=== PATIENT | female | born 1950 | race Two or more races ===

== ENCOUNTER 2022-03-30 14:51 | Inpatient (IN) | payer MEDICARE, MEDICAID ==
[~2022-03-30] VITALS: Ht 149.9 cm; Wt 50.8 kg
[2022-03-30 15:21] LABS: Basophils # (auto) 0.1 10 ^3/uL (0-0.2); Basophils % (auto) 0.6 % (0.0-2.0); Eosinophils # (auto) 0 10 ^3/uL (0-0.8); Hematocrit 44.6 % (36.0-46.0); Hemoglobin 15.3 g/dL (12.2-16.2); Lymphocytes # (auto) 1.5 10 ^3/uL (0.4-5.4); Mean Corpuscular Hemoglobin 33.6 pg (28.0-32.0); Mean Corpuscular Hgb Conc. 34.3 g/dL (32.0-36.0); Mean Corpuscular Volume 97.8 fL (80.0-100.0); Monocytes # (auto) 0.5 10 ^3/uL (0-1.3); Monocytes % (auto) 4.2 % (0.0-12.0); Neutrophils % (auto) 83.2 % (37.0-80.0); Nucleated Red Blood Cells % 0.3 %; Red Blood Cells 4.56 10^6/uL (4.0-5.20); Red Cell Distribution Width 14.1 % (11.8-14.3); White Blood Cell 12.1 10^3/uL (4.4-10.8)
[2022-03-30 15:41] LABS: Albumin 3.9 g/dL (3.4-5.0); BUN/Creatinine Ratio 16.7; Calcium 10.1 mg/dL (8.5-10.1); Potassium 3.6 mmol/L (3.5-5.1)
[2022-03-30 15:43] LABS: Bilirubin, Total 0.9 mg/dL (0.2-1.0); Total Protein 7.6 g/dL (6.4-8.2)
[2022-03-30] MEDS ORDERED: NITROGLYCERIN 0.4 MG SL TAB SL ONE (16:00)
[2022-03-30] MEDS ORDERED: THIAMINE 100mg/ml INJ (200mg/2ml VIAL) IV ONE (16:00)
[2022-03-30] MEDS ORDERED: cefTRIAXone 1GM/50ML D5W 50 ML IV ONE (16:00)
[2022-03-30] MEDS ORDERED: ASPirin 81 mg TAB PO ONE (16:00)
[2022-03-30] MEDS ORDERED: IRBE300T43 PO (19:23)
[2022-03-30] MEDS ORDERED: AMLO-489 PO (19:23)
[2022-03-30 19:40] LABS: Alcohol, Urine < 3.0 mg/dL (0-10); Amphetamine Screen, Urine NEGATIVE (NEGATIVE); Barbiturate Scree,Urine NEGATIVE (NEGATIVE); Benzodiazephine Screen, Urine NEGATIVE (NEGATIVE); Cannabinoid Screen, Urine POSITIVE (NEGATIVE); Cocaine Screen, Urine NEGATIVE (NEGATIVE); Opiate Scree,Urine NEGATIVE (NEGATIVE); Phencyclidine Screen, Urine NEGATIVE (NEGATIVE)
[2022-03-30 19:48] LABS: Urine Blood 1+ /uL (Negative); Urine Specific Gravity 1.024 (1.001-1.035)
[2022-03-30 20:06] LABS: Cholesterol 201 mg/dL (< 200)
[2022-03-30 20:08] LABS: HDL Cholesterol 88 mg/dL (40-59); LDL Cholesterol 104 mg/dL (< 100); Triglycerides 97 mg/dL (< 150)
[2022-03-30] MEDS: ASCORBIC ACID 500 MG TAB PO SCH (20:47)
[2022-03-30] MEDS ORDERED: ENOXAPARIN SOD 40 MG/0.4 ML SYRINGE SC SCH (21:00)
[2022-03-30] MEDS: SODIUM CHLORIDE 0.9% 1,000 ML IV SCH (21:01)
[2022-03-31] MEDS: ACETAMINOPHEN 325 MG TAB PO PRN ×2 (06:19→12:28)
[2022-03-31 06:22] LABS: Basophils # (auto) 0.1 10 ^3/uL (0-0.2); Eosinophils # (auto) 0.1 10 ^3/uL (0-0.8); Eosinophils % (auto) 0.6 % (0.0-7.0); Hematocrit 45.2 % (36.0-46.0); Lymphocytes # (auto) 1.8 10 ^3/uL (0.4-5.4); Lymphocytes % (auto) 18.4 % (10.0-50.0); Mean Corpuscular Hgb Conc. 33.2 g/dL (32.0-36.0); Mean Corpuscular Volume 99.2 fL (80.0-100.0); Monocytes # (auto) 0.6 10 ^3/uL (0-1.3); Monocytes % (auto) 6.1 % (0.0-12.0); Neutrophils # (auto) 7.2 10 ^3/uL (1.6-8.6); Neutrophils % (auto) 73.9 % (37.0-80.0); Nucleated Red Blood Cells % 0.2 %; Red Blood Cells 4.55 10^6/uL (4.0-5.20); Red Cell Distribution Width 14.2 % (11.8-14.3); White Blood Cell 9.7 10^3/uL (4.4-10.8)
[2022-03-31 06:31] LABS: Albumin 3.7 g/dL (3.4-5.0); Calcium 9.1 mg/dL (8.5-10.1); Potassium 3.4 mmol/L (3.5-5.1)
[2022-03-31 06:36] LABS: Total Protein 7.1 g/dL (6.4-8.2)
[2022-03-31] MEDS: cefTRIAXone 1GM/50ML D5W 50 ML IV SCH (08:55)
[2022-03-31] MEDS: THIAMINE 100mg/ml INJ (200mg/2ml VIAL) IV SCH (11:17)
[2022-03-31] MEDS: ENOXAPARIN SOD 30 MG/0.3 ML SYRINGE SC SCH (11:18)
[2022-03-31] MEDS: MULTIPLE VITAMIN TAB PO SCH (11:18)
[2022-03-31] MEDS: ASPirin 81 mg TAB PO SCH (11:18)
[2022-03-31] MEDS: ASCORBIC ACID 500 MG TAB PO SCH ×2 (11:18→22:44)
[2022-03-31] MEDS: ZINC SULFATE 220mg CAP or TAB PO SCH (11:18)
[2022-03-31] MEDS: amLODIPine BESYLATE 5 MG TAB PO SCH (11:19)
[2022-03-31] MEDS ORDERED: ATORVASTATIN 20 MG TAB PO ONE (11:45)
[2022-03-31] MEDS: SODIUM CHLORIDE 0.9% 1,000 ML IV SCH (12:06)
[2022-03-31] MEDS ORDERED: SODIUM CHLORIDE 0.9% 1,000 ML IV ONE (13:00)
[2022-03-31] MEDS: MORPHINE SULFATE INJ 2 MG/ml SYRG IV PRN ×2 (20:53→23:19)
[2022-03-31 22:00] VITALS: BP 136/107
[2022-03-31] MEDS: ATORVASTATIN 20 MG TAB PO SCH (22:44)
[2022-03-31] MEDS: NITROGLYCERIN 0.4 MG SL TAB SL PRN ×3 (22:49→23:03)
[2022-04-01 05:00] VITALS: BP 122/79
[2022-04-01 06:12] LABS: Albumin 2.8 g/dL (3.4-5.0); BUN/Creatinine Ratio 21.1; Calcium 8.1 mg/dL (8.5-10.1); Potassium 3.3 mmol/L (3.5-5.1)
[2022-04-01 06:16] LABS: Bilirubin, Total 0.8 mg/dL (0.2-1.0); Total Protein 5.9 g/dL (6.4-8.2)
[2022-04-01] MEDS ORDERED: ADENOSINE 38 MG in GIVE UN-DILUTED 0 ML IV ONE (07:30)
[2022-04-01 09:00] VITALS: BP 140/86
[2022-04-01] MEDS: cefTRIAXone 1GM/50ML D5W 50 ML IV SCH (10:05)
[2022-04-01] MEDS: ENOXAPARIN SOD 30 MG/0.3 ML SYRINGE SC SCH (10:06)
[2022-04-01] MEDS: ASPirin 81 mg TAB PO SCH (10:06)
[2022-04-01] MEDS: MULTIPLE VITAMIN TAB PO SCH (10:07)
[2022-04-01] MEDS: ZINC SULFATE 220mg CAP or TAB PO SCH (10:08)
[2022-04-01] MEDS: ASCORBIC ACID 500 MG TAB PO SCH ×2 (10:08→22:22)
[2022-04-01] MEDS: amLODIPine BESYLATE 5 MG TAB PO SCH (10:10)
[2022-04-01] MEDS: THIAMINE 100mg/ml INJ (200mg/2ml VIAL) IV SCH (10:10)
[2022-04-01 13:00] VITALS: BP 144/94
[2022-04-01] MEDS: MORPHINE SULFATE INJ 2 MG/ml SYRG IV PRN ×2 (13:31→22:15)
[2022-04-01 17:01] VITALS: BP 131/88
[2022-04-01 22:00] VITALS: BP 149/94
[2022-04-01] MEDS: ATORVASTATIN 20 MG TAB PO SCH (22:22)
[2022-04-02] MEDS: ACETAMINOPHEN 325 MG TAB PO PRN (03:00)
[2022-04-02] MEDS: MORPHINE SULFATE INJ 2 MG/ml SYRG IV PRN ×4 (03:53→21:56)
[2022-04-02 05:00] VITALS: BP 127/87
[2022-04-02 09:00] VITALS: BP 140/94
[2022-04-02] MEDS: cefTRIAXone 1GM/50ML D5W 50 ML IV SCH (09:16)
[2022-04-02] MEDS: THIAMINE 100mg/ml INJ (200mg/2ml VIAL) IV SCH (09:18)
[2022-04-02] MEDS: ZINC SULFATE 220mg CAP or TAB PO SCH (09:21)
[2022-04-02] MEDS: ASPirin 81 mg TAB PO SCH (09:22)
[2022-04-02] MEDS: ASCORBIC ACID 500 MG TAB PO SCH ×2 (09:22→21:55)
[2022-04-02] MEDS: MULTIPLE VITAMIN TAB PO SCH (09:22)
[2022-04-02] MEDS: amLODIPine BESYLATE 5 MG TAB PO SCH (09:22)
[2022-04-02] MEDS: ENOXAPARIN SOD 30 MG/0.3 ML SYRINGE SC SCH (09:23)
[2022-04-02] MEDS ORDERED: GADOTERATE MEG 7.5 MMOL/15ml INJ (0.5MMOL/ml) IV ONE (11:27)
[2022-04-02 13:00] VITALS: BP 131/102
[2022-04-02 17:00] VITALS: BP 131/92
[2022-04-02 21:30] VITALS: BP 144/87
[2022-04-02] MEDS: ATORVASTATIN 20 MG TAB PO SCH (21:55)
[2022-04-03] MEDS: ACETAMINOPHEN 325 MG TAB PO PRN (04:53)
[2022-04-03 05:00] VITALS: BP 126/89
[2022-04-03] MEDS: MORPHINE SULFATE INJ 2 MG/ml SYRG IV PRN ×5 (08:28→22:28)
[2022-04-03 09:02] VITALS: BP 134/92
[2022-04-03] MEDS: ASCORBIC ACID 500 MG TAB PO SCH ×2 (09:26→20:55)
[2022-04-03] MEDS: MULTIPLE VITAMIN TAB PO SCH (09:26)
[2022-04-03] MEDS: ZINC SULFATE 220mg CAP or TAB PO SCH (09:27)
[2022-04-03] MEDS: THIAMINE 100mg/ml INJ (200mg/2ml VIAL) IV SCH (09:27)
[2022-04-03] MEDS: amLODIPine BESYLATE 5 MG TAB PO SCH (09:27)
[2022-04-03] MEDS: ENOXAPARIN SOD 30 MG/0.3 ML SYRINGE SC SCH (09:28)
[2022-04-03] MEDS: cefTRIAXone 1GM/50ML D5W 50 ML IV SCH (09:28)
[2022-04-03] MEDS ORDERED: ONDANSETRON ODT 4 MG TAB PO PRN (12:15)
[2022-04-03 13:22] VITALS: BP 141/96
[2022-04-03 17:00] VITALS: BP 117/78
[2022-04-03] MEDS ORDERED: KETOROLAC TROMETH 30 MG/ML 1ML VIAL IV PRN (20:45)
[2022-04-03] MEDS: ATORVASTATIN 20 MG TAB PO SCH (20:55)
[2022-04-03 22:00] VITALS: BP 139/98
[2022-04-04 05:00] VITALS: BP 134/93
[2022-04-04] MEDS: MORPHINE SULFATE INJ 2 MG/ml SYRG IV PRN ×2 (05:29→09:53)
[2022-04-04] MEDS: ZINC SULFATE 220mg CAP or TAB PO SCH (08:37)
[2022-04-04] MEDS: amLODIPine BESYLATE 5 MG TAB PO SCH (08:38)
[2022-04-04] MEDS: THIAMINE 100mg/ml INJ (200mg/2ml VIAL) IV SCH (08:38)
[2022-04-04] MEDS: cefTRIAXone 1GM/50ML D5W 50 ML IV SCH (08:39)
[2022-04-04] MEDS: ENOXAPARIN SOD 30 MG/0.3 ML SYRINGE SC SCH (08:39)
[2022-04-04] MEDS: ASCORBIC ACID 500 MG TAB PO SCH (08:39)
[2022-04-04] MEDS: MULTIPLE VITAMIN TAB PO SCH (08:43)
[2022-04-04 09:00] VITALS: BP 145/107
[2022-04-04] MEDS ORDERED: FOLI1TAB6 PO (09:15)
[2022-04-04] MEDS ORDERED: PANT40T PO (09:15)
[2022-04-04] MEDS ORDERED: THIA100T5 PO (09:15)
[2022-04-04 09:41] VITALS: BP 128/63
[2022-04-04 10:51] VITALS: BP 134/81
== END 2022-04-04 11:10 | disposition home or self-care (01) | DRG 282 ==
LOC: ER 14:51 → TELE 19:12 → TELE-CENTR 03-31 21:48
PROVIDERS: ADMIT Nurse Practitioner Family; ATTEND Family Medicine
DX: K85.20 Alcohol induced acute pancreatitis without necrosis or infection (principal); D72.829 Elevated white blood cell count, unspecified; F10.10 Alcohol abuse, uncomplicated; I10 Essential (primary) hypertension; Z20.822 Contact with and (suspected) exposure to COVID-19; E78.00 Pure hypercholesterolemia, unspecified; R74.01 Elevation of levels of liver transaminase levels; E78.5 Hyperlipidemia, unspecified; R07.89 Other chest pain; F12.10 Cannabis abuse, uncomplicated; Z79.899 Other long term (current) drug therapy; Z90.710 Acquired absence of both cervix and uterus; Z80.6 Family history of leukemia; Z71.41 Alcohol abuse counseling and surveillance of alcoholic; Z90.49 Acquired absence of other specified parts of digestive tract
CPT/HCPCS: 36415; 71045; 74176; 74181; 74183; 78452; 80053; 80061; 80307; 80320; 81003; 83605; 83690; 84443; 84484; 85025; 86301; 87040; 87426; 93005; 93017; 93306; G0378; J0153; J0696; J1885; Q0162

== ENCOUNTER 2022-10-01 11:35 | Day surgery (SDC) | payer MEDICARE, MEDICAID ==
[2022-09-24 14:10] LABS: Basophils # (auto) 0.1 10 ^3/uL (0-0.2); Eosinophils # (auto) 0.1 10 ^3/uL (0-0.8); Hemoglobin 14.4 g/dL (12.2-16.2); Mean Corpuscular Hemoglobin 34.1 pg (28.0-32.0); Monocytes # (auto) 0.6 10 ^3/uL (0-1.3); Monocytes % (auto) 5.6 % (0.0-12.0); Nucleated Red Blood Cells % 0.1 %; Red Blood Cells 4.22 10^6/uL (4.0-5.20); White Blood Cell 10.2 10^3/uL (4.4-10.8)
[2022-09-24 14:12] LABS: Basophils % (auto) 0.7 % (0.0-2.0); Mean Corpuscular Hgb Conc. 33.4 g/dL (32.0-36.0); Neutrophils # (auto) 7.4 10 ^3/uL (1.6-8.6); Neutrophils % (auto) 72.7 % (37.0-80.0); Red Cell Distribution Width 12.6 % (11.8-14.3)
[2022-09-24 14:44] LABS: INR 0.91 (0.9-1.15); Partial Thromboplastin Time 26.7 sec (24.6-33.4)
[2022-09-24 14:45] LABS: Albumin 3.2 g/dL (3.4-5.0); Calcium 8.3 mg/dL (8.5-10.1); Potassium 4.1 mmol/L (3.5-5.1)
[2022-09-24 14:49] LABS: Bilirubin, Total 0.3 mg/dL (0.2-1.0); Total Protein 6.9 g/dL (6.4-8.2)
[~2022-10-01] VITALS: Ht 149.9 cm; Wt 44.0 kg
[~2022-10-01 11:35] MED LIST: AMLO1TAB22 PO; FOLI-119 PO; IRBE300T43 PO; PANT40T PO; THIA100T5 PO
[2022-10-01] MEDS: fentaNYL CITRATE 100 MCG/2 ML VL ONE ×4 (14:29→14:39)
[2022-10-01] MEDS: MIDAZOLAM HCL 2MG/2ML 2ml VIAL (1mg/ml) ONE ×6 (14:29→14:59)
[2022-10-01 15:43] VITALS: BP 134/89
[2022-10-01] MEDS ORDERED: diphenhdrAMINE HCL 50 MG/1 ML VL ONE (16:44)
== END 2022-10-01 15:45 | disposition home or self-care (01) ==
LOC: GI 11:35
PROVIDERS: ATTEND Internal Medicine Gastroenterology
DX: Z12.11 Encounter for screening for malignant neoplasm of colon (principal); D12.0 Benign neoplasm of cecum; D12.2 Benign neoplasm of ascending colon; D12.3 Benign neoplasm of transverse colon; D12.4 Benign neoplasm of descending colon; I10 Essential (primary) hypertension; Z90.710 Acquired absence of both cervix and uterus; Z80.6 Family history of leukemia; Z83.79 Family history of other diseases of the digestive system; Z79.899 Other long term (current) drug therapy; Z98.890 Other specified postprocedural states
CPT/HCPCS: 36415; 45385; 80053; 85025; 85610; 85730; 88305; J1200; J2250; J3010; J7030; 99152; 99153

== ENCOUNTER 2023-11-15 12:26 | Inpatient (IN) | payer MEDICARE, MEDICAID ==
[~2023-11-15] VITALS: Ht 149.9 cm; Wt 42.9 kg
[2023-11-15] MEDS: SODIUM CHLORIDE 0.9% 500 ML IVB ONE (13:22)
[2023-11-15 13:28] VITALS: PULSE 81; RESP 14; O2SAT 99
[2023-11-15 13:31] LABS: Basophils # (auto) 0.1 10 ^3/uL (0-0.2); Basophils % (auto) 0.7 % (0.0-2.0); Eosinophils # (auto) 0 10 ^3/uL (0-0.8); Lymphocytes # (auto) 1.5 10 ^3/uL (0.4-5.4); Monocytes # (auto) 0.4 10 ^3/uL (0-1.3); Neutrophils # (auto) 7.6 10 ^3/uL (1.6-8.6)
[2023-11-15 13:32] LABS: Eosinophils % (auto) 0.4 % (0.0-7.0); Hematocrit 39.1 % (36.0-46.0); Hemoglobin 13.4 g/dL (12.2-16.2); Lymphocytes % (auto) 15.5 % (10.0-50.0); Mean Corpuscular Hemoglobin 36.7 pg (28.0-32.0); Mean Corpuscular Hgb Conc. 34.3 g/dL (32.0-36.0); Monocytes % (auto) 4.1 % (0.0-12.0); Neutrophils % (auto) 79.3 % (37.0-80.0); Red Blood Cells 3.65 10^6/uL (4.0-5.20); Red Cell Distribution Width 13.7 % (11.8-14.3); White Blood Cell 9.6 10^3/uL (4.4-10.8)
[2023-11-15 13:57] LABS: Alanine Aminotransferase 12 U/L (7-40); Albumin 3.9 g/dL (3.2-4.8); Alkaline Phosphatase 112 U/L (46-116); Anion Gap 7 (5-15); Aspartate Aminotransferase 13 U/L (13-40); BUN/Creatinine Ratio 16.8 (10.0-20.0); Bilirubin, Total 0.6 mg/dL (0.2-1.0); Blood Urea Nitrogen 23 mg/dL (9-23); Carbon Dioxide 15 mmol/L (20-30); Chloride 112 mmol/L (98-107); Glucose 127 mg/dL (74-106); Lipase 40 U/L (12-53); Potassium 3.8 mmol/L (3.5-5.1); Sodium 134 mmol/L (136-145); Total Protein 6.7 g/dL (5.7-8.2)
[2023-11-15 15:45] LABS: Urine Amorphous Crystal FEW /hpf (None Seen); Urine Bacteria MANY /hpf (None Seen); Urine Blood Negative /uL (Negative); Urine Clarity Turbid (Clear); Urine Color Colorless (Yellow); Urine Hyaline Cast FEW /lpf (0 - 2); Urine Mucus FEW (None Seen); Urine Protein, UAD TRACE (Negative); Urine Specific Gravity 1.013 (1.001-1.035); Urine Urobilinogen Normal (Negative); Urine WBC 50 /hpf (0 - 5); Urine pH 5.5 (5.0-9.0)
[2023-11-15] MEDS ORDERED: HYDROcodone-ACET 5/325MG TAB PO PRN (18:15)
[2023-11-15] MEDS ORDERED: ONDANSETRON HCL 4 MG/2 ML VIAL IV PRN (18:15)
[2023-11-15] MEDS ORDERED: DOCUSATE SOD 100 MG CAP PO PRN (18:15)
[2023-11-15] MEDS ORDERED: ACETAMINOPHEN 325 MG TAB PO PRN (18:15)
[2023-11-15] MEDS ORDERED: SODIUM CHLORIDE 0.9% 1,000 ML IV SCH (18:15)
[2023-11-15] MEDS ORDERED: NITROGLYCERIN 0.4 MG SL TAB SL PRN (18:30)
[2023-11-15] MEDS ORDERED: MORPHINE SULFATE INJ 2 MG/ml SYRG IV PRN (18:30)
[2023-11-15] MEDS: cefTRIAXone 1GM/50ML D5W 50 ML IV ONE (19:02)
[2023-11-15 21:16] VITALS: BP 96/67; PULSE 88; RESP 14; TEMP 97.6; O2SAT 98
[2023-11-16] VITALS (8 sets, daily range): BP systolic 83–105; BP diastolic 57–71; PULSE 70–92; RESP 16–18; TEMP 97.5–98.7; O2SAT 95–99
[2023-11-16] MEDS ORDERED: PNEUMOCOCCAL VACC POLYS 25 MCG/0.5 ML VIAL IM ONE (02:30)
[2023-11-16 05:54] LABS: Basophils # (auto) 0.1 10 ^3/uL (0-0.2); Basophils % (auto) 0.6 % (0.0-2.0); Eosinophils # (auto) 0.1 10 ^3/uL (0-0.8); Hematocrit 33.5 % (36.0-46.0); Hemoglobin 11.6 g/dL (12.2-16.2); Lymphocytes # (auto) 1.7 10 ^3/uL (0.4-5.4); Lymphocytes % (auto) 20.6 % (10.0-50.0); Mean Corpuscular Hemoglobin 36.9 pg (28.0-32.0); Mean Corpuscular Hgb Conc. 34.6 g/dL (32.0-36.0); Mean Corpuscular Volume 106.9 fL (80.0-100.0); Monocytes # (auto) 0.4 10 ^3/uL (0-1.3); Monocytes % (auto) 4.9 % (0.0-12.0); Neutrophils % (auto) 72.9 % (37.0-80.0); Nucleated Red Blood Cells % 0.1 %; Red Blood Cells 3.13 10^6/uL (4.0-5.20); Red Cell Distribution Width 13.3 % (11.8-14.3); White Blood Cell 8.3 10^3/uL (4.4-10.8)
[2023-11-16 06:19] LABS: Alkaline Phosphatase 86 U/L (46-116); Anion Gap 10 (5-15); Aspartate Aminotransferase 8 U/L (13-40); BUN/Creatinine Ratio 22.8 (10.0-20.0); Blood Urea Nitrogen 18 mg/dL (9-23); Calcium 7.4 mg/dL (8.7-10.4); Carbon Dioxide 12 mmol/L (20-30); Chloride 116 mmol/L (98-107); Glucose 74 mg/dL (74-106); Potassium 2.9 mmol/L (3.5-5.1); Sodium 138 mmol/L (136-145)
[2023-11-16 06:20] LABS: Bilirubin, Total 0.4 mg/dL (0.2-1.0); Total Protein 4.8 g/dL (5.7-8.2)
[2023-11-16 06:30] LABS: Alanine Aminotransferase < 9 U/L (7-40)
[2023-11-16] MEDS: MECLIZINE HCL 25 MG TAB PO PRN (07:03)
[2023-11-16] MEDS: POTASSIUM CHLORIDE 40 MEQ in SOD CHL 0.45% 1,000 ML IV SCH (08:30)
[2023-11-16] MEDS: cefTRIAXone 1GM/50ML D5W 50 ML IV SCH (09:33)
[2023-11-16] MEDS: ENOXAPARIN SOD 30 MG/0.3 ML SYRINGE SC SCH (09:33)
[2023-11-16] MEDS: PANTOPRAZOLE 40 MG/10 ML VIAL INJ IV SCH (09:33)
[2023-11-16] MEDS: POTASSIUM CHL 20MEQ/100ML 100 ML IV ONE (11:45)
[2023-11-16] MEDS: SODIUM CHLORIDE 0.9% 500 ML IV ONE (12:06)
[2023-11-16 12:23] LABS: Base Excess -11.8 mmol/L (-2.0-2.0)
[2023-11-16] MEDS: SODIUM CHLORIDE 0.9% 1,000 ML IV SCH (14:45)
[2023-11-16] MEDS ORDERED: IOHEXOL 350 MG/ML 100ML IJ ONE (15:00)
[2023-11-16] MEDS: MAGNESIUM SULFATE 1GM/100ML 100 ML IV SCH (18:00)
[2023-11-16 18:57] LABS: Folate (Folic Acid) 5.83 ng/mL (>5.38)
[2023-11-16] MEDS: CYANOCOBALAMIN (B-12) 1000 MCG/1 ML VIAL IM ONE (23:09)
[2023-11-16] MEDS: POTASSIUM CHL 20 Meq TABLET PO ONE (23:10)
[2023-11-17] VITALS (11 sets, daily range): BP systolic 82–111; BP diastolic 53–77; PULSE 70–78; RESP 14–20; TEMP 97.5–98.3; O2SAT 93–100
[2023-11-17] MEDS: SODIUM CHLORIDE 0.9% 500 ML IV ONE (04:56)
[2023-11-17] MEDS ORDERED: LOPERAMIDE 1 mg/7.5ml ORAL soln PO PRN (05:45)
[2023-11-17 06:30] LABS: Basophils # (auto) 0.1 10 ^3/uL (0-0.2); Eosinophils # (auto) 0.1 10 ^3/uL (0-0.8); Hemoglobin 11.6 g/dL (12.2-16.2); Lymphocytes # (auto) 1.8 10 ^3/uL (0.4-5.4); Lymphocytes % (auto) 22.5 % (10.0-50.0); Monocytes # (auto) 0.4 10 ^3/uL (0-1.3); Neutrophils # (auto) 5.5 10 ^3/uL (1.6-8.6); White Blood Cell 7.9 10^3/uL (4.4-10.8)
[2023-11-17 06:33] LABS: Basophils % (auto) 1.2 % (0.0-2.0); Eosinophils % (auto) 1.2 % (0.0-7.0); Hematocrit 33.8 % (36.0-46.0); Mean Corpuscular Hemoglobin 37.4 pg (28.0-32.0); Mean Corpuscular Hgb Conc. 34.3 g/dL (32.0-36.0); Mean Corpuscular Volume 109.1 fL (80.0-100.0); Monocytes % (auto) 5.3 % (0.0-12.0); Neutrophils % (auto) 69.8 % (37.0-80.0); Red Cell Distribution Width 13.8 % (11.8-14.3)
[2023-11-17 06:41] LABS: Alanine Aminotransferase 10 U/L (7-40); Albumin 3.2 g/dL (3.2-4.8); Alkaline Phosphatase 88 U/L (46-116); Anion Gap 4 (5-15); Aspartate Aminotransferase 9 U/L (13-40); BUN/Creatinine Ratio 12.6 (10.0-20.0); Blood Urea Nitrogen 11 mg/dL (9-23); Calcium 8.3 mg/dL (8.7-10.4); Carbon Dioxide 14 mmol/L (20-30); Chloride 118 mmol/L (98-107); Glucose 69 mg/dL (74-106); Magnesium 2.3 mg/dL (1.6-2.6); Potassium 4.6 mmol/L (3.5-5.1); Sodium 136 mmol/L (136-145)
[2023-11-17 06:42] LABS: Bilirubin, Total 0.3 mg/dL (0.2-1.0); Total Protein 5.3 g/dL (5.7-8.2)
[2023-11-17] MEDS ORDERED: POTASSIUM CHLORIDE 20 MEQ, LIDOCAINE 1% (LOCAL ANESTH.) 2 ML in SODIUM CHL 0.9% 100 ML IV ONE (09:00)
[2023-11-17] MEDS: CYANOCOBALAMIN 500 MCG TAB PO SCH (09:53)
[2023-11-18] VITALS (7 sets, daily range): BP systolic 92–113; BP diastolic 66–74; PULSE 72–84; RESP 17–18; TEMP 97.6–98.4; O2SAT 93–98
[2023-11-18 06:49] LABS: Alkaline Phosphatase 84 U/L (46-116); Anion Gap 7 (5-15); Aspartate Aminotransferase < 8 U/L (13-40); BUN/Creatinine Ratio 9.3 (10.0-20.0); Bilirubin, Total 0.4 mg/dL (0.2-1.0); Blood Urea Nitrogen 7 mg/dL (9-23); Calcium 8.4 mg/dL (8.7-10.4); Carbon Dioxide 15 mmol/L (20-30); Chloride 118 mmol/L (98-107); Glucose 75 mg/dL (74-106); Potassium 4.4 mmol/L (3.5-5.1); Sodium 140 mmol/L (136-145); Total Protein 4.8 g/dL (5.7-8.2)
[2023-11-18 06:50] LABS: Alanine Aminotransferase < 9 U/L (7-40)
[2023-11-18 06:51] LABS: Eosinophils # (auto) 0.1 10 ^3/uL (0-0.8); Hemoglobin 11.1 g/dL (12.2-16.2); Lymphocytes # (auto) 1.9 10 ^3/uL (0.4-5.4); Mean Corpuscular Hgb Conc. 34.5 g/dL (32.0-36.0); Monocytes # (auto) 0.4 10 ^3/uL (0-1.3); Nucleated Red Blood Cells % 0.1 %
[2023-11-18 06:55] LABS: Basophils # (auto) 0.1 10 ^3/uL (0-0.2); Basophils % (auto) 1.3 % (0.0-2.0); Eosinophils % (auto) 1.6 % (0.0-7.0); Hematocrit 32.3 % (36.0-46.0); Mean Corpuscular Volume 107.4 fL (80.0-100.0); Monocytes % (auto) 5.3 % (0.0-12.0); Neutrophils # (auto) 5.6 10 ^3/uL (1.6-8.6); Neutrophils % (auto) 68.8 % (37.0-80.0); Red Blood Cells 3.01 10^6/uL (4.0-5.20); Red Cell Distribution Width 13.8 % (11.8-14.3); White Blood Cell 8.1 10^3/uL (4.4-10.8)
[2023-11-18] MEDS ORDERED: CYAN500T3 PO (18:26)
[2023-11-18] MEDS ORDERED: NITR-52 PO (18:26)
== END 2023-11-18 20:55 | disposition home or self-care (01) | DRG 720 ==
LOC: ER 12:26 → TELE 18:26 → TELE-WESTW 22:20
PROVIDERS: ADMIT Internal Medicine Pulmonary Disease; ATTEND Internal Medicine Pulmonary Disease
DX: A41.9 Sepsis, unspecified organism (principal); E87.20 Acidosis, unspecified; E83.51 Hypocalcemia; K86.89 Other specified diseases of pancreas; G90.9 Disorder of the autonomic nervous system, unspecified; K52.9 Noninfective gastroenteritis and colitis, unspecified; K57.30 Diverticulosis of large intestine without perforation or abscess without bleeding; N39.0 Urinary tract infection, site not specified; E87.6 Hypokalemia; D64.9 Anemia, unspecified; I10 Essential (primary) hypertension; Z90.710 Acquired absence of both cervix and uterus; Z90.49 Acquired absence of other specified parts of digestive tract
CPT/HCPCS: 36415; 36600; 70450; 71260; 74176; 74177; 80053; 81001; 82607; 82746; 82805; 82962; 83605; 83690; 83735; 84132; 85025; 87040; 87086; 87493; 93005; 96361; 96365; G0378; J2470; J3480

== ENCOUNTER 2024-01-04 17:26 | Emergency (ER) | payer MEDICARE, MEDICAID ==
[~2024-01-04] VITALS: Ht 149.9 cm; Wt 42.5 kg
[~2024-01-04 17:26] MED LIST changes: +CYAN500T3 PO; -FOLI-119 PO; +NITR-52 PO; -PANT40T PO; -THIA100T5 PO
[2024-01-04 18:20] VITALS: BP 118/76; PULSE 89; RESP 20; TEMP 98; O2SAT 98
[2024-01-04] MEDS ORDERED: NAP500T PO (19:58)
== END 2024-01-04 20:19 | disposition home or self-care (01) ==
LOC: ER 17:26
DX: S20.212A Contusion of left front wall of thorax, initial encounter (principal); I10 Essential (primary) hypertension; F12.10 Cannabis abuse, uncomplicated; Z90.49 Acquired absence of other specified parts of digestive tract; Z90.710 Acquired absence of both cervix and uterus; W18.09XA Striking against other object with subsequent fall, initial encounter; Y93.89 Activity, other specified; Y92.89 Other specified places as the place of occurrence of the external cause; Y99.8 Other external cause status
CPT/HCPCS: 71101

== ENCOUNTER 2024-06-23 15:09 | Emergency (ER) | payer MEDICARE, MEDICAID ==
[~2024-06-23] VITALS: Ht 149.9 cm; Wt 96.0 kg
[~2024-06-23 15:09] MED LIST changes: +NAP500T PO
[2024-06-23 15:23] VITALS: BP 134/84; RESP 17; TEMP 98; O2SAT 100
--- NOTE | 2024-06-23 15:45 | ED.PDOC ---
Back pain HPI HPI Comments HPI: Poor Historian. 73-year-old female presents to emergency department for evaluation of generalized ribcage pain bilaterally and on the sides of her ribcage and in her upper back. Onset of symptoms this past Tuesday after a friend of the family gave her a strong hugger. She felt her ribs cracked at that time and she has been having increased pain since then. Her pain is worse with deep inspiration. Past Medical History: Hypertension, Past Surgical History: Bladder sling, cholecystectomy, hysterectomy REVIEW OF SYSTEMS: CONSTITUTIONAL: Denies acute: fever, diaphoresis, chills, generalized weakness. HEAD: Denies acute: headache, photophobia Eyes: Denies acute: Double vision, vision loss, eye pain, eye discharge. EARS: Denies acute: tinnitus, hearing loss, ear discharge, ear pain, THROAT: Denies acute: sore throat, swelling, difficulty swallowing , pain with swallowing, change in voice. NECK: Denies acute: neck pain, neck swelling, stiff neck. HEART: Denies acute : palpitations, LUNGS: Denies acute: SOB, wheezing, cough, hemoptysis ABDOMEN: Denies acute: abdominal pain, Nausea, Vomiting, diarrhea, melena , hematemesis, hematochezia SKIN: Denies acute: rash, redness, lesions, itchiness. EXTREMITIES: Denies acute: calf pain, numbness, tingling, weakness, denies pain in extremity. Denies acute: Low back pain. Neuro: Denies acute: focal neurological deficit, motor or sensory focal neurological deficit, tremors, seizure like activity, confusion, dizziness, change in mental status, loss of bowel or bladder function, cauda equina like symptoms. : Denies acute: dysuria, hematuria, flank pain, increase in urinary frequency. PSYCH: Denies acute: hallucination, suicidal ideation, homicidal ideation. FEMALE: Denies acute: abnormal vaginal bleeding, foul odor, unusual discharge. PHYSICAL EXAM: General: [id number] acute distress, awake and alert. Head: normocephalic, atraumatic. Neck: supple, trachea is midline, no swelling. Throat: Normal phonation. Eyes:, no erythema, no purulent discharge, no proptosis, no icterus. Heart: regular rate, regular rhythm, no significant murmur appreciated. Lungs: no apparent respiratory distress, Able to speak in full sentences. No wheezing, no rhonchi, no crackles. No stridors Clear to auscultation bilaterally. Abdomen: non tender to palpation, non distended, soft, no guarding, no rebound, + bowel sounds. Neuro: Awake, Alert, oriented to name, self, situation, follows commands GCS=15. Speech is normal. Skin: no petechia, no purpura, no cyanosis, non-pale, not jaundice. Lower extremities: --no - Pitting edema no deformity, no focal swelling, no calf TTP. Makes eye contact. moves all four extremities. Face: no apparent facial droop. Generalized tenderness to palpation throughout the ribcage areas bilaterally, no crepitus, no swelling, Ambulating in the ED independently. ED COURSE: Chief Complaint: Chest Pain Time Seen by MD: 15:19 Primary Care Provider: ENDO Reviewed Notes: Nurses Notes, Medications, Allergies Allergies: Coded Allergies: NO KNOWN ALLERGIES (Unverified , 03/30/22) Home Meds Active Scripts Naproxen (NAPROSYN TABLET) 500 Mg Tb, 1 TAB PO BID PRN, #30 TAB 0 Refills Prov:KAROLINE CERDA 01/04/24 Nitrofurantoin (Nitrofurantoin) 100 Mg Cap, 1 CAP PO BID for 5 Days, #10 CAP Prov:RADHA DIEHL RESIDENT 11/18/23 Cyanocobalamin (Gnp Vitamin B12) 500 Mcg Tab, 500 MCG PO DAILY for 30 Days, #30 TAB 2 Refills Prov:RADHA DIEHL RESIDENT 11/18/23 Reported Medications Irbesartan (IRBESARTAN) 300 Mg Tab, 300 TAB PO DAILY 03/30/22 Amlodipine Besylate (Amlodipine Besylate) 5 Mg Tab, 5 TAB PO DAILY 03/30/22 Information Source: Patient Mode of Arrival: Ambulatory Past Medical History PAST MEDICAL HISTORY: HTN Surgical History: Cholecystectomy, Hysterectomy CROCHET BEADER History: No Pertinent CROCHET BEADER History Family History Family History: Unknown Social History Smoker: Non-Smoker Alcohol: Occasionally Drugs: Marijuana Lives In: Home Was a procedure done? Was a procedure done?: No Back Pain Differential Dx Differential Diagnosis: Other (Ddx include but not limitied to gastritis, musculoskeletal pain, radiculopathy, atypical chest pain, dissection, aneurysm, ACS, unstable angina, hiatal hernia, GERD, anxiety, costochondritis, PE, pneumothroax, neoplasm, cardiac ischemia, drug abuse, anemia.) X-Ray, Labs, Meds, VS Vital Signs Date Time Temp Pulse Resp B/P (MAP) Pulse Ox O2 Delivery O2 Flow Rate FiO2 06/23/24 16:42 91 06/23/24 15:23 98.0 106 17 134/84 (101) 100 98.0 06/23/24 15:14 101 Lab Test 06/23/24 16:47 06/23/24 15:39 Range/Units Troponin I High Sensitivity 5 5 </=34 ng/L White Blood Count 7.3 4.4-10.8 10^3/uL Red Blood Count 3.71 L 4.0-5.20 10^6/uL Hemoglobin 13.2 12.2-16.2 g/dL Hematocrit 37.8 36.0-46.0 % Mean Corpuscular Volume 101.7 H 80.0-100.0 fL Mean Corpuscular Hemoglobin 35.4 H 28.0-32.0 pg Mean Corpuscular Hemoglobin Concent 34.8 32.0-36.0 g/dL Red Cell Distribution Width 13.4 11.8-14.3 % Platelet Count 357 140-450 10^3/uL Mean Platelet Volume 6.8 L 6.9-10.8 fL Neutrophils (%) (Auto) 57.0 37.0-80.0 % Lymphocytes (%) (Auto) 30.0 10.0-50.0 % Monocytes (%) (Auto) 9.9 0.0-12.0 % Eosinophils (%) (Auto) 2.2 0.0-7.0 % Basophils (%) (Auto) 0.9 0.0-2.0 % Neutrophils # (Auto) 4.2 1.6-8.6 10 ^3/uL Lymphocytes # (Auto) 2.2 0.4-5.4 10 ^3/uL Monocytes # (Auto) 0.7 0-1.3 10 ^3/uL Eosinophils # (Auto) 0.2 0-0.8 10 ^3/uL Basophils # (Auto) 0.1 0-0.2 10 ^3/uL Nucleated Red Blood Cells 0.1 % Sodium Level 137 136-145 mmol/L Potassium Level 4.5 3.5-5.1 mmol/L Chloride Level 113 H 98-107 mmol/L Carbon Dioxide Level 17 L 20-31 mmol/L Anion Gap 7 5-15 Blood Urea Nitrogen 15 9-23 mg/dL Creatinine 0.94 0.550-1.02 mg/dL Glomerular Filtration Rate Calc 64 >90 mL/min BUN/Creatinine Ratio 16.0 10.0-20.0 Serum Glucose 66 L 74-106 mg/dL Calcium Level 9.1 8.7-10.4 mg/dL Total Bilirubin 0.4 0.2-1.0 mg/dL Aspartate Amino Transferase (AST) 18 13-40 U/L Alanine Aminotransferase (ALT) 17 7-40 U/L Alkaline Phosphatase 124 H 46-116 U/L Creatine Kinase 66 34-145 U/L Total Protein 6.9 5.7-8.2 g/dL Albumin 4.5 3.2-4.8 g/dL [place] [id number] Ph: [phone] DIAGNOSTIC IMAGING Diagnostic Imaging Report : [id number] Signed PATIENT: GARCÍA REIS ACCT: [id number] UNIT: [id number] : 1950 LOC: ER ROOM / BED: / AGE / SEX: 73 / F ADM STATUS: REG ER SERVICE [id number] ORDERING PHYSICIAN: SOLIS INIGUEZ DO PROCEDURE(s): CX2CT - CHEST WITHOUT CONTRAST REASON: rib pain b/l ORDER NUMBER(s): [id number], ACCESSION NUMBER(s): [id number] EXAM: CT CHEST WITHOUT CONTRAST History: rib pain b/l Comparison Study: None available TECHNIQUE: Multidetector CT of the chest was performed. Imaging was performed without IV contrast. Axial, coronal, and sagittal multiplanar reformats were obtained from the axial data set by the technologist. Radiation Dose : CTDI vol 5.6 mGy, DLP 223.58 mGy*cm. Findings: Lungs: The lungs are clear. Pleura: Unremarkable Heart/Great vessels: No cardiomegaly or pericardial effusion. Mediastinum: Unremarkable Soft tissues/Bones: Mild multilevel degenerative changes of the thoracic spine. Nondisplaced fractures of the lateral aspects of right ribs 4-6. Cholecystectomy. Calcifications in the pancreatic head. Left renal cysts. Diverticulosis. The partially visualized upper abdomen is within normal limits. Impression: 1. No acute cardiopulmonary disease. 2. Nondisplaced fractures of the lateral aspects of right ribs 4-6. ATED BY: LEATHA VO DO DICTATED DATE/TIME: 06/23/241754 SIGNED BY: LEATHA VO DO SIGNED DATE/TIME: 06/23/241754 CC: Time of 1ST Reevaluation: 18:20 Reevaluation 1ST: Unchanged Patient Education/Counseling: Other Family Education/Counseling: Other Comments Patient presented with the above HPI.--ribcage pain----workup was initiated. patient was found with the above mentioned diagnosis. the following medications were ordered: please refer to order lists of meds and tests obtained by myself Dr. Iniguez. Patient ED course and VS have been stabilized. Patient eloped. Earlier we attempted to give the patient juice to drink given her hypoglycemia. She was seen walking out not wanted to stay anymore in the ED All the reports of any imaging studies that were ordered by myself were reviewed by myself. Departure 1 Departure Time of Disposition: 18:17 Impression: Primary Impression: Rib fracture Additional Impressions: Eloped from emergency department Hypoglycemia Disposition: 07 LEFT AWOL/ELOPED Condition: Guarded Additional Instructions: Patient eloped Discharged With: Self Critical Care Note Critical Care Time?: No Heart Score Heart Score: Heart Score Response (Comments) Value History Slightly Suspicious 0 EKG Normal 0 Age >65 2 Risk Factors 1 or 2 risk factors 1 Troponin Normal limit 0 Total 3 SOLIS INIGUEZ DO Jun 23, 2024 15:45
[2024-06-23 15:55] LABS: Basophils # (auto) 0.1 10 ^3/uL (0-0.2); Lymphocytes # (auto) 2.2 10 ^3/uL (0.4-5.4); Neutrophils # (auto) 4.2 10 ^3/uL (1.6-8.6); Nucleated Red Blood Cells % 0.1 %
[2024-06-23 15:58] LABS: Basophils % (auto) 0.9 % (0.0-2.0); Eosinophils # (auto) 0.2 10 ^3/uL (0-0.8); Eosinophils % (auto) 2.2 % (0.0-7.0); Hematocrit 37.8 % (36.0-46.0); Hemoglobin 13.2 g/dL (12.2-16.2); Mean Corpuscular Hemoglobin 35.4 pg (28.0-32.0); Mean Corpuscular Hgb Conc. 34.8 g/dL (32.0-36.0); Mean Corpuscular Volume 101.7 fL (80.0-100.0); Monocytes # (auto) 0.7 10 ^3/uL (0-1.3); Monocytes % (auto) 9.9 % (0.0-12.0); Platelet Count (auto) 357 10^3/uL (140-450); Red Blood Cells 3.71 10^6/uL (4.0-5.20); Red Cell Distribution Width 13.4 % (11.8-14.3); White Blood Cell 7.3 10^3/uL (4.4-10.8)
[2024-06-23 16:21] LABS: Alanine Aminotransferase 17 U/L (7-40); Albumin 4.5 g/dL (3.2-4.8); Anion Gap 7 (5-15); Aspartate Aminotransferase 18 U/L (13-40); Blood Urea Nitrogen 15 mg/dL (9-23); Calcium 9.1 mg/dL (8.7-10.4); Creatine Kinase IFCC 66 U/L (34-145); Potassium 4.5 mmol/L (3.5-5.1); Sodium 137 mmol/L (136-145); Total Protein 6.9 g/dL (5.7-8.2)
[2024-06-23 16:22] LABS: Bilirubin, Total 0.4 mg/dL (0.2-1.0)
[2024-06-23 16:23] LABS: Alkaline Phosphatase 124 U/L (46-116); Carbon Dioxide 17 mmol/L (20-31); Chloride 113 mmol/L (98-107); Glucose 66 mg/dL (74-106)
[2024-06-23 16:42] VITALS: PULSE 91
--- NOTE | 2024-06-23 17:58 | DVH ---
EXAM: CT CHEST WITHOUT CONTRAST History: rib pain b/l Comparison Study: None available TECHNIQUE: Multidetector CT of the chest was performed. Imaging was performed without IV contrast. Ax ial, coronal, and sagittal multiplanar reformats were obtained from the axial data set by the technol jayne. Radiation Dose : CTDI vol 5.6 mGy, DLP 223.58 mGy*cm. Findings: Lungs: The lungs are clear. Pleura: Unremarkable Heart/Great vessels: No cardiomegaly or pericardial effusion. Mediastinum: Unremarkable Soft tissues/Bones: Mild multilevel degenerative changes of the thoracic spine. Nondisplaced fracture s of the lateral aspects of right ribs 4-6. Cholecystectomy. Calcifications in the pancreatic head. Left renal cysts. Diverticulosis. The part ially visualized upper abdomen is within normal limits. Impression: 1. No acute cardiopulmonary disease. 2. Nondisplaced fractures of the lateral aspects of right ribs 4-6.
[2024-06-23 19:35] LABS: Urine Bacteria FEW /hpf (None Seen); Urine Blood Negative /uL (Negative); Urine Clarity Turbid (Clear); Urine Color Yellow (Yellow); Urine Hyaline Cast FEW /lpf (0 - 2); Urine Mucus FEW (None Seen); Urine Protein, UAD 1+ (Negative); Urine Squamous Epithelial Cell FEW /hpf (<5); Urine Urobilinogen Normal (Negative); Urine WBC 12 /HPF (0-5); Urine pH 5.5 (5.0-9.0)
--- NOTE | 2024-06-24 07:40 | ECG ---
[facility] Test Date: 2024-06-23 Test Time: 15:14:50 Pat Name: GARCÍA REIS Department: ER Room: Gender: F Lead Web Developer: JAZMIN : 1950 Requested By: EMERGENCY EMERGENCY Order Number: [id number] Reading MD: Ari Petersen Measurements Intervals [place] Rate: 101 P: 15 CT: 135 QRS: -15 QRSD: 82 T: 20 QT: 328 QTc: 426 Interpretive Statements Sinus tachycardia Inferior infarct, old Anterior infarct, old Electronically Signed On 06-24-2024 19:20:16 PDT by Ari Petersen Please click the below link to view image of tracing.
--- NOTE | 2024-06-24 20:13 | ECG ---
[facility] Test Date: 2024-06-23 Test Time: 16:42:32 Pat Name: GARCÍA REIS Department: ER Room: Gender: F Steaming Cabinet Tender: SCOTT : 1950 Requested By: EMERGENCY EMERGENCY Order Number: [id number] Reading MD: Ari Petersen Measurements Intervals [place] Rate: 91 P: 35 [place]: 144 QRS: 5 QRSD: 72 T: 55 QT: 361 QTc: 445 Interpretive Statements Sinus rhythm Low voltage, precordial leads Probable anteroseptal infarct, old Electronically Signed On 06-24-2024 20:44:04 PDT by Ari Petersen Please click the below link to view image of tracing.
== END 2024-06-23 18:05 | disposition left against medical advice (07) ==
LOC: ER 15:11
DX: S22.31XA Fracture of one rib, right side, initial encounter for closed fracture (principal); E16.2 Hypoglycemia, unspecified; F12.90 Cannabis use, unspecified, uncomplicated; I10 Essential (primary) hypertension; Z90.49 Acquired absence of other specified parts of digestive tract; Z90.710 Acquired absence of both cervix and uterus; Z79.899 Other long term (current) drug therapy; X58.XXXA Exposure to other specified factors, initial encounter; Y93.89 Activity, other specified; Y92.89 Other specified places as the place of occurrence of the external cause; Y99.8 Other external cause status
CPT/HCPCS: 36415; 71250; 80053; 81001; 82550; 84484; 85025; 93005